=== PATIENT | female | born 1995 | race Hispanic/Latino ===

== ENCOUNTER 2017-06-19 07:36 | Day surgery (SDC) | payer BC ==
[2017-06-19] MEDS ORDERED: Lactated Ringer's 500 ML IV ONE (08:15)
[2017-06-19] MEDS ORDERED: Midazolam 2 MG/2 ML VIAL ONE (10:24)
[2017-06-19] MEDS ORDERED: Lidocaine PF 2% (5 ml) Inj (For Cardiac Arrhy) IV ONE (10:24)
[2017-06-19] MEDS ORDERED: Propofol 10 mg/ml Inj (20 ML) ONE (10:24)
[2017-06-19 10:46] VITALS: RESP 18
[2017-06-19 10:49] VITALS: TEMP 98.5
[2017-06-19 11:06] VITALS: BP 99/52; PULSE 61; O2SAT 100
== END 2017-06-19 11:25 | disposition home or self-care (01) ==
LOC: H.ENDO 07:36
PROVIDERS: ATTEND Internal Medicine Gastroenterology
DX: K30 Functional dyspepsia (principal); K31.9 Disease of stomach and duodenum, unspecified; K29.50 Unspecified chronic gastritis without bleeding; K25.9 Gastric ulcer, unspecified as acute or chronic, without hemorrhage or perforation; K21.9 Gastro-esophageal reflux disease without esophagitis
CPT/HCPCS: 43239; 88305; J2250; J2704; J7120